=== PATIENT | male | born 1995 | race Hispanic/Latino ===

== ENCOUNTER 2020-02-22 11:48 | Observation (INO) | payer MEDICAID, SELFPAY ==
--- NOTE | ~2020-02-22 | XR_ITS ---
EXAMINATION: XR surgery orthopedic EXAM DATE: 02/23/2020 08:55 INDICATION: 3rd, 4th left metatarsal fractures. Surgical fixation. TECHNIQUE: Fluoroscopy used during XR surgery orthopedic performed by Dr. Brian Bullard MD. The DAP for this procedure was 1.8 cGycm2. Correlation made to left foot x-ray from yesterday. FINDINGS: There are acute left 3rd, 4th metatarsal neck/shaft fractures. These images demonstrate snell rgical fixation thomas extending along the long axis of the 3rd metatarsal bone, bridging the metatarsop halangeal joint. Correlate with procedure note. IMPRESSION: Fluoroscopy used during fixation left 3rd metatarsal fracture. Reviewed, dictated and finalized at location A.
--- NOTE | ~2020-02-22 | XR_ITS ---
EXAMINATION: XR foot LT min 3V EXAM DATE: 02/22/2020 12:28 INDICATION: Initial encounter following injury, with pain of the left foot. TECHNIQUE: Left foot dorsoplantar, lateral and oblique projections obtained and reviewed. There is n o prior study for comparison. FINDINGS: There are acute closed posttraumatic fractures at the necks of the left 3rd and 4th metatar kiet bones with mild displacement. There is overlying soft tissue swelling. IMPRESSION: Acute left 3rd, 4th metatarsal neck fractures. Reviewed, dictated and finalized at location A.
[2020-02-22 11:58] VITALS: BP 140/85; PULSE 60; RESP 18; TEMP 36.6; O2SAT 100
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
--- NOTE | 2020-02-22 12:18 | PC.NURSE ---
Xray at bedside.
[2020-02-22] MEDS: ACETAMINOPHEN 500 MG TABLET 1000 MG PO (12:24)
[2020-02-22] MEDS: TETANUS,DIPHTHERIA,AC PERTUSSIS ADULT (0.5 ML) BOOSTRIX IM (12:24)
[2020-02-22] MEDS: HYDROcodone/acetaminophen (*CRX) 7.5-325 MG TABLET 1 TAB PO (13:44)
[2020-02-22 14:22] LABS: Basophils Absolute Auto 0.1 K/mm3 (0.0-0.1); Basophils Percent Auto 0.7 % (0.2-1.2); Eosinophils Absolute Auto 0.2 K/mm3 (0-0.3); Eosinophils Percent Auto 2.9 % (0-4.4); Hematocrit 42.1 % (42.0-52.0); Hemoglobin 14.9 g/dL (14.0-18.0); Immature Granulocyte Absolute 0.01 K/mm3 (0.00-0.031); Immature Granulocyte Percent A 0.1 % (0-0.5); Lymphocytes Absolute Auto 1.54 K/mm3 (0.9-3.2); Mean Corpuscular HGB Conc 35.4 g/dl (32-36); Mean Corpuscular Hemoglobin 29.9 pg (26-34); Mean Corpuscular Volume 84.4 fl (80-100); Mean Platelet Volume 10.9 fl (7.4-10.4); Monocytes Absolute Auto 0.5 K/mm3 (0.1-0.6); Monocytes Percent Auto 6.4 % (2.6-8.5); Neutrophils Absolute Auto 5.1 K/mm3 (1.3-6.7); Neutrophils Percent Auto 68.9 % (45.5-73.1); Platelet Count Result 235 k/mm3 (150-375); Red Blood Count 4.99 M/mm3 (4.6-6.20); Red Cell Distribution Width 12.3 % (11.5-14.5); White Blood Count 7.3 K/mm3 (4.5-10.0)
[2020-02-22] MEDS: ceFAZolin 2 GM/D5W 50 ML 2 GM/50 ML BAG IVPB (14:23)
[2020-02-22] MEDS: SODIUM CHLORIDE 0.9% IV 1,000 ML 150 ML IV CONT (14:23)
[2020-02-22 14:34] LABS: Anion Gap 10 mmol/L (8-16); Blood Urea Nitrogen 13 mg/dL (9-20); Calcium 10.2 mg/dL (8.4-10.2); Carbon Dioxide 27 mmol/L (22-30); Chloride 103 mmol/L (98-107); Estimated CRCL calculation 93 ml/min; Estimated Glomerular Filt Rate > 60; Glucose 102 mg/dL (75-110); Potassium 3.8 mmol/L (3.4-5.0); Sodium 140 mmol/L (137-145)
[2020-02-22] MEDS: GENTAMICIN SULFATE INJ 300 MG in DEXTROSE 5% 100 ML 100 MG IVPB (15:12)
[2020-02-22 15:20] VITALS: BP 132/76; PULSE 61; RESP 18; O2SAT 100
[2020-02-22 15:50] VITALS: BP 136/80; PULSE 64; RESP 18; TEMP 36.5; O2SAT 100; BMI 22.4
--- NOTE | 2020-02-22 16:22 | ADMGEN ---
This patient, Dionisio Abraham, was admitted to Medical Room 349-01. Patient/family oriented to hospital policies and general routines including ID bracelet, bed and alarms, visiting hours, pain management, procedures, bathroom and other care routines, personal items, smoking policy, room service/diet, and visiting hours. Valuables list has been completed. Information on how to activate the Rapid Response Team has been discussed. Patient/Family are encouraged to report perceived risks to care and to ask questions if they do not understand what they are told or what they should do.
--- NOTE | 2020-02-22 16:57 | WPDANESEPP ---
Anes - Eval Pre Procedure Date/Time: 02/22/20 16:57 Pre Op Diagnosis: Open fracture left foot Patient Data Age: 24 Gender: M Height: 1.63 m Weight: 59.24 kg Last Vital Signs Temp 36.5 C 02/22/20 15:50 Pulse 64 02/22/20 15:50 Resp 18 02/22/20 15:50 BP 136/80 02/22/20 15:50 Pulse Ox 100 02/22/20 15:50 Allergies Allergy/AdvReac Type Severity Reaction Status Date / Time No Known Allergies Allergy Verified 02/22/20 12:02 Home Medications Medication Instructions Recorded Confirmed Type No Home Medications 02/22/20 02/22/20 History Laboratory Tests 02/22/20 02/22/20 14:17 14:17 WBC 7.3 K/mm3 K/mm3 (4.5-10.0) RBC 4.99 M/mm3 M/mm3 (4.6-6.20) Hgb 14.9 g/dL g/dL (14.0-18.0) Hct 42.1 % % (42.0-52.0) MCV 84.4 fl fl (80-100) MCH 29.9 pg pg (26-34) MCHC 35.4 g/dl g/dl (32-36) RDW 12.3 % % (11.5-14.5) Plt Count 235 k/mm3 k/mm3 (150-375) MPV 10.9 fl H fl (7.4-10.4) Immature Gran % (Auto) 0.1 % % (0-0.5) Neut % (Auto) 68.9 % % (45.5-73.1) Lymph % (Auto) 21.0 % % (18.3-44.2) [place] % (Auto) 6.4 % % (2.6-8.5) Eos % (Auto) 2.9 % % (0-4.4) Baso % (Auto) 0.7 % % (0.2-1.2) Lymph # (Auto) 1.54 K/mm3 K/mm3 (0.9-3.2) [place] # (Auto) 0.5 K/mm3 K/mm3 (0.1-0.6) Eos # (Auto) 0.2 K/mm3 K/mm3 (0-0.3) Baso # (Auto) 0.1 K/mm3 K/mm3 (0.0-0.1) Abs Immat Gran (auto) 0.01 K/mm3 K/mm3 (0.00-0.031) Absolute Neuts (auto) 5.1 K/mm3 K/mm3 (1.3-6.7) Absolute Nucleated RBC 0.0 K/mm3 K/mm3 (0.0-0.012) Nucleated RBC % 0.0 % % (0.0-0.2) Sodium 140 mmol/L mmol/L (137-145) Potassium 3.8 mmol/L mmol/L (3.4-5.0) Chloride 103 mmol/L mmol/L (98-107) Carbon Dioxide 27 mmol/L mmol/L (22-30) Anion Gap 10 mmol/L mmol/L (8-16) BUN 13 mg/dL mg/dL (9-20) Creatinine 0.90 mg/dL mg/dL (0.7-1.3) Estim Creat Clear Calc 93 ml/min ml/min Estimated GFR > 60 (59 - ) Glucose 102 mg/dL mg/dL (75-110) Calcium 10.2 mg/dL mg/dL (8.4-10.2) Patient hx anesthesia problems: none Family hx anesthesia problems: none PMFSH Social History Social History Smoking status: Never smoker Gender identity (if verbalized by the patient): Male Exam Day of Procedure 02/22/20 16:57 Patient weight: normal Heart: regular rate and rhythm Lungs: clear to auscultation Airway: Mallampati scale class II Neurological: alert and oriented
[2020-02-22] MEDS: FAMOTIDINE 20 MG/2 ML VIAL IV PUSH (21:32)
[2020-02-22 21:44] VITALS: BP 122/67; PULSE 62; RESP 18; TEMP 36.2; O2SAT 100
[2020-02-23] VITALS (12 sets, daily range): BP systolic 107–140; BP diastolic 54–78; PULSE 57–98; RESP 12–16; TEMP 36–36.9; O2SAT 95–100
[2020-02-23 02:54] LABS: Gentamicin Random 1.3 ug/mL (5.0-12.0)
--- NOTE | 2020-02-23 07:28 | WPDHPUPDATE1 ---
History and Physical Update Update Date/Time: 02/23/20 07:28 History and Physical has been reviewed, including an updated exam of the patient. There are NO changes in the patient's condition. Risks, benefits, and alternatives have been discussed and questions answered. Patient agrees to proceed with procedure.
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
[2020-02-23] MEDS: LACTATED RINGERS 1,000 ML 30 ML IV CONT ×2 (07:30→08:39)
--- NOTE | 2020-02-23 07:35 | P.PNAN_ITS ---
Anes - Eval Final PreProcedure Day of Procedure 02/23/20 07:35 Patient weight: normal Heart: regular rate and rhythm Lungs: clear to auscultation Airway: Mallampati scale class II Neurological: alert and oriented Last oral intake: >/= 8 hours ASA classification: I Emergent: no Anesthetic plan: proceed Anesthesia type and monitoring: general LMA and standard monitoring Informed Consent: The patient's anesthetic plan and its attendant risks and ene efits were discussed with the patient/family/POA. Questions were solicited and answers provided to the satisfaction of the patient/family/POA.
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
[2020-02-23] MEDS: fentaNYL CITRATE INJ (*CRX) 100 MCG/2 ML VIAL 25 MCG IV PUSH ×4 (09:15→09:40)
[2020-02-23] MEDS: FAMOTIDINE 20 MG/2 ML VIAL IV PUSH ×2 (11:05→21:25)
[2020-02-23] MEDS: DOCUSATE SODIUM 100 MG CAPSULE PO ×2 (11:05→16:30)
[2020-02-23] MEDS: GENTAMICIN SULFATE INJ 300 MG in DEXTROSE 5% 100 ML 100 MG IVPB (14:16)
[2020-02-24 06:57] VITALS: BP 135/72; PULSE 68; RESP 12; TEMP 36.6; O2SAT 100
[2020-02-24 08:22] LABS: Estimated CRCL calculation 85 ml/min; Estimated Glomerular Filt Rate > 60
[2020-02-24 08:31] VITALS: PULSE 72; RESP 16; O2SAT 100
[2020-02-24] MEDS: DOCUSATE SODIUM 100 MG CAPSULE PO (08:31)
[2020-02-24] MEDS: FAMOTIDINE 20 MG/2 ML VIAL IV PUSH (08:31)
[2020-02-24 10:00] VITALS: BP 115/66; PULSE 81; RESP 18; TEMP 36.6; O2SAT 98
--- NOTE | 2020-02-24 11:40 | WPDANESPN ---
Anes - Prog Note Post-Op Date/Time: 02/24/20 11:40 Cardiovascular status: normal Respiratory status: normal Airway patency: baseline Mental status: baseline Post-Op hydration status: normal Vital Signs: Last Vital Signs Temp 36.6 C 02/24/20 06:57 Pulse 72 02/24/20 08:31 Resp 16 02/24/20 08:31 BP 135/72 02/24/20 06:57 Pulse Ox 100 02/24/20 08:31 Pain Score (VAS): 1 I/O: Intake & Output 02/23/20 02/24/20 02/24/20 23:59 07:59 15:59 Intake Total 557.5 450 240 Output Total 400 900 Balance 157.5 -450 240 Laboratory Tests 02/22/20 14:17 02/24/20 08:04 02/24/20 08:04 Creatinine 1.00 Estim Creat Clear Calc 85 Estimated GFR > 60 Post-procedural complaints: none Patient Feedback: Patient satisfied with anesthetic care.
[2020-02-24] MEDS: GENTAMICIN SULFATE INJ 300 MG in DEXTROSE 5% 100 ML 100 MG IVPB (14:17)
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
== END 2020-02-24 15:50 | disposition home or self-care (01) ==
LOC: ANHED 14:46 → ANH3MED 14:58
PROVIDERS: Emergency Medicine Emergency Medical Services; Orthopaedic Surgery; Admitting Provider Family Medicine; Emergency Provider Emergency Medicine; Visit Provider Family Medicine
PROC: (CPT 28485; principal; 2020-02-23 07:30)
DX: S92.332B Displaced fracture of third metatarsal bone, left foot, initial encounter for open fracture (principal); S92.342B Displaced fracture of fourth metatarsal bone, left foot, initial encounter for open fracture; V27.0XXA Motorcycle driver injured in collision with fixed or stationary object in nontraffic accident, initial encounter; Z23 Encounter for immunization
CPT/HCPCS: 28485; 29515; 36415; 73630; 80048; 80170; 82565; 85025; 90471; 90715; 96361; 96365; 96366; 96367; 96375; 96376; 97161; 97165; 99285; A9270; C1713; G0378; G0379; J0131; J0330; J0690; J1100; J1580; J2250; J2370; J2405; J2704; J3010; J7030; J7120

== ENCOUNTER 2021-12-20 15:06 | Emergency (ER) | payer BC, SELFPAY ==
[2021-12-20 15:13] VITALS: BP 145/74; PULSE 69; RESP 18; TEMP 36.2; O2SAT 100
[2021-12-20 15:33] LABS: Add Urine Microscopic? YES; Appearance Urine Clear (Clear); Bilirubin Urine Negative (Negative); Blood Urine Negative (Negative); Color Urine Yellow (Yellow); Glucose Urine UA Negative (Negative); Ketones Urine Negative (Negative); Leukocyte Esterase Ur 1+ LEU/UL (Negative); Nitrate Urine Negative (Negative); Protein Urine Negative (Negative); Urobilinogen Urine 0.2 mg/dL (<2.0); pH Urine 6.5 (5.0-9.0)
[2021-12-20 15:39] LABS: Amorphous Sediment Urine Few; Mucus Urine Rare /lpf; RBC Urine 0-2 /hpf (0-2); Squamous Epithelial Cell Urine Rare /hpf (Few)
[2021-12-20 17:21] VITALS: BP 129/57; PULSE 66; RESP 17; TEMP 36.8; O2SAT 100
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
[2021-12-20] MEDS: metroNIDAZOLE 250 MG TABLET 2000 MG PO (19:20)
[2021-12-20] MEDS: cefTRIAXone 1 GM VIAL 0.5 GM IM (19:20)
[2021-12-20] MEDS: WATER, STERILE FOR INJECTION 10 ML VIAL XX (19:21)
[2021-12-20 20:47] VITALS: BP 131/93; PULSE 58; RESP 18; O2SAT 99
== END 2021-12-20 20:49 | disposition home or self-care (01) ==
LOC: ANHED 18:54
PROVIDERS: Emergency Provider Emergency Medicine
DX: R30.0 Dysuria (principal); Z20.2 Contact with and (suspected) exposure to infections with a predominantly sexual mode of transmission
CPT/HCPCS: 81001; 87086; 87491; 87591; 96372; 99283; A9270; J0696